=== PATIENT | male | born 1965 | race African-American/Black ===

== ENCOUNTER 2018-06-02 20:14 | Emergency (ER) | payer OTHER ==
[~2018-06-02] VITALS: Ht 180.3 cm; Wt 86.2 kg
[2018-06-02] MEDS ORDERED: HYDROCODONE/APAP 5MG-325MG TAB PO ONE (22:00)
--- NOTE | 2018-06-02 22:21 | Diagnostic Imaging Report ---
Exam: Left knee 3 views Indication: Left lateral knee pain after falling off ladder about 30 minutes ago Comparison: None Findings: The bones are well-mineralized. No lytic or blastic lesions. No fractures. Possible soft tissue edema medial aspect of the knee. No evidence of an abnormal joint effusion. Exam: No evidence of a left knee fracture. Signed by: Dr. Merle Campa M.D. on 06/02/2018 10:17 PM
== END 2018-06-02 23:25 | disposition home or self-care (01) ==
LOC: FSED 20:14
DX: S83.92XA Sprain of unspecified site of left knee, initial encounter (principal); W11.XXXA Fall on and from ladder, initial encounter; Y92.008 Other place in unspecified non-institutional (private) residence as the place of occurrence of the external cause; I10 Essential (primary) hypertension